=== PATIENT | female | born 1990 | race African-American/Black ===

== ENCOUNTER 2017-07-02 14:39 | Emergency (ER) | payer MEDICAID ==
[~2017-07-02] VITALS: Ht 162.6 cm; Wt 77.1 kg
[~2017-07-02 14:39] MED LIST: NORE1TAB93
--- NOTE | 2017-07-02 14:45 | NUR ---
presents to er c/o lower abdominal pain x yesterday, 17 weeks , A0. a/ox 4. breathing even and unlabored. no sob, nad, vitals stable. safety and comfort measures in place. awaiting md orders.
--- NOTE | 2017-07-02 15:12 | NUR ---
US TECH AT BEDSIDE.
[2017-07-02 15:14] LABS: BASOPHILS % (AUTO) 0.6 % (0.0-2.0); EOSINOPHILS % (AUTO) 0.8 % (0.0-6.0); HEMATOCRIT 33 % (33-45); HEMOGLOBIN 11.4 g/dL (11.5-14.8); LYMPHOCYTES # (AUTO) 1.7 /CMM (0.8-4.8); LYMPHOCYTES % (AUTO) 20.7 % (20.0-44.0); MEAN CORPUSCULAR HGB CONC 35 g/dl (31.0-36.0); MEAN CORPUSCULAR VOLUME 79 fL (82-100); MONOCYTES # (AUTO) 0.2 /CMM (0.1-1.30); MONOCYTES % (AUTO) 2.8 % (2.0-12.0); NEUTROPHILS # (AUTO) 6.1 /CMM (1.8-8.9); NEUTROPHILS % (AUTO) 75.1 % (43.0-81.0); PLATELET COUNT (AUTO) 230 /CMM (150-450); RDW COEFFICIENT OF VARIATION 13.8 (11.5-15.0); RED BLOOD CELL COUNT(AUTO) 4.14 MIL/uL (4.0-5.2); WHITE BLOOD COUNT (AUTO) 8.1 K/uL (4.3-11.0)
[2017-07-02 15:23] LABS: CALCIUM, SERUM 8.8 mg/dL (8.5-10.1); CREATININE 0.7 mg/dL (0.6-1.3); POTASSIUM 3.4 mmol/L (3.5-5.1)
--- NOTE | 2017-07-02 15:26 | NUR ---
PER GEOPHYSICS SCIENTIST, SU CANCEL HEART TONES. PELVIC US ORDERED INSTEAD.
[2017-07-02 16:07] LABS: APPEARANCE,URINE Clear (CLEAR); BILIRUBIN,URINE Negative (NEGATIVE); BLOOD, URINE Negative Ery/uL (NEGATIVE); COLOR,URINE Yellow (YELLOW); KETONES,URINE Negative (NEGATIVE); LEUKOCYTE ESTERASE ,URINE Small (NEGATIVE); NITRITE, URINE Negative (NEGATIVE); PROTEIN,URINE Negative (NEGATIVE); UGLUCOSE Negative (NEGATIVE); UROBILINOGEN,URINE 0.2 EU/dL (0.2)
[2017-07-02 16:32] VITALS: BP 138/69
[2017-07-02 16:32] LABS: RBC,URINE 0-2 /HPF (0-2); WBC,URINE 0-3 /HPF (0-3)
[2017-07-02 16:33] LABS: BACTERIA,URINE Few /HPF (None Seen); SQUAMOUS EPITHELIAL CELL,UR Few /HPF (None Seen)
--- NOTE | 2017-07-02 16:33 | NUR ---
Patient discharged to home in stable condition. Written and verbal after care instructions given. Patient verbalizes understanding of instruction.
== END 2017-07-02 16:33 | disposition home or self-care (01) ==
LOC: ER 14:44
DX: O23.42 Unspecified infection of urinary tract in pregnancy, second trimester (principal); Z3A.17 17 weeks gestation of pregnancy
CPT/HCPCS: 36415; 76805-TC; 80048-TC; 81000-TC; 85025-TC; 87086-TC; A4606; Z7610

== ENCOUNTER 2017-07-18 11:05 | Emergency (ER) | payer MEDICAID ==
[~2017-07-18] VITALS: Ht 162.6 cm; Wt 80.7 kg
[2017-07-18 11:10] VITALS: BP 141/72
[2017-07-18 11:31] LABS: APPEARANCE,URINE Clear (CLEAR); BILIRUBIN,URINE Negative (NEGATIVE); BLOOD, URINE Negative Ery/uL (NEGATIVE); COLOR,URINE Yellow (YELLOW); KETONES,URINE Negative (NEGATIVE); LEUKOCYTE ESTERASE ,URINE Trace (NEGATIVE); NITRITE, URINE Negative (NEGATIVE); PROTEIN,URINE Negative (NEGATIVE); UGLUCOSE Negative (NEGATIVE); UROBILINOGEN,URINE 0.2 EU/dL (0.2)
[2017-07-18 11:35] LABS: RBC,URINE 0-2 /HPF (0-2)
[2017-07-18 11:36] LABS: BACTERIA,URINE None seen /HPF (None Seen); SQUAMOUS EPITHELIAL CELL,UR Few /HPF (None Seen); WBC,URINE 0-3 /HPF (0-3)
== END 2017-07-18 12:09 | disposition home or self-care (01) ==
LOC: ER 11:08
DX: O99.512 Diseases of the respiratory system complicating pregnancy, second trimester (principal); B97.89 Other viral agents as the cause of diseases classified elsewhere; J02.8 Acute pharyngitis due to other specified organisms; R35.0 Frequency of micturition; Z3A.20 20 weeks gestation of pregnancy
CPT/HCPCS: 81000-TC; A4606; Z7610